=== PATIENT | female | born 1980 | race Caucasian/White ===

== ENCOUNTER 2016-08-04 15:16 | Emergency (ER) | payer SELFPAY ==
[~2016-08-04 15:16] MED LIST: ALBUTEROL SULF8.5 G2 IH; ALPRAZOLAM2 M2 PO; ALPRAZOLAM2 M3 PO; AMOXICILLIN500 M2 PO; AMOXICILLIN500 MG PO; AMOXIL500 MG PO; ATIVAN0.5 MG PO; ATIVAN1 M1 PO; AUGMENTIN 875-1 EAC2 PO; BACTRIM DS TABL1 TAB PO; BENADRYL25 MG PO; CATAPRES0.1 MG PO; CLONAZEPAM0.25 MG PO; CLONAZEPAM0.5 M2 PO; CLONAZEPAM1 M2 PO; COUMADIN; DARVOCET-N 1001 TAB PO; DEPAKOTE; DEPRESSION MED; DICLOFENAC POTA50 M1 PO; DIFLUCAN150 MG PO; EXCEDRIN MIGRAI1 TAB PO; FIORICET TABLET1 TAB PO; FLOXIN10 ML OT; HYDROCODONE; HYDROXYZINE HCL50 M1 PO; IBUPROFEN200 M2 PO; KLONOPIN0.5 M1 PO; LATUDA120 M1 PO; LORAZEPAM1 MG PO; MOTRIN600 MG; MOTRIN800 MG; NALTREXONE HYDR50 MG PO; NO HOME MEDS; NORCO 5-325 TA1 EACH PO; NORCO 5/325 TAB1 TAB PO; OMEPRAZOLE20 M4 PO; ONCE DAILY1 TAB PO; OXYCODONE; PEN-VEE K500 MG PO; PHENERGAN W/CO120 M1 PO; PHENERGAN W/CO120 ML PO; PREDNISONE10 MG PO; PREDNISONE20 M1 PO; PROAIR HFA8.5 GM IH; PROBIOTIC1 EAC4 PO; PROMETH-CODEIN 65 ML PO; PROMETHAZINE-C120 ML PO; RANITIDINE HCL75 M1 PO; REXULTI2 MG PO; ROBITUSSIN15 MG/5 ML; SEROQUEL300 M1 PO; SEROQUEL50 M1 PO; TORADOL10 MG PO; TRAMADOL; TRAMADOL HCL50 MG PO; TRAZODONE100 MG PO; TRIAMCINOLONE A80 GM TP; TYLENOL EXTRA500 M1 PO; ULTRAM50 M1 PO; VALTREX1000 MG PO; VISTARIL25 M1 PO; ZITHROMAX250 M1 PO; ZOFRAN ODT4 MG/UDTAB PO; ZOFRAN4 M1 PO; [UNRECOGNIZED DRUG - OTHER]; [UNRECOGNIZED DRUG - OTHER]
[2016-08-04] MEDS ORDERED: ADVIL200 M2 PO (15:20)
[2016-08-04] MEDS ORDERED: NORCO 5-325 TA1 EACH PO (15:47)
[2016-08-04] MEDS ORDERED: PENICILLIN V P500 M1 PO (15:47)
[2016-12-04] MEDS ORDERED: SEROQUEL100 M2 PO (11:31)
[2016-12-04] MEDS ORDERED: NORCO 5-325 TA1 EACH PO (14:14)
[2016-12-04] MEDS ORDERED: AMOXICILLIN500 M2 PO (14:14)
[2016-12-13] MEDS ORDERED: XANAX2 M1 PO (18:39)
[2016-12-13] MEDS ORDERED: TYLENOL EXTRA500 M1 PO (18:40)
[2016-12-13] MEDS ORDERED: TRAMADOL HCL50 M2 PO (20:43)
[2016-12-13] MEDS ORDERED: NORCO 5-325 TA1 EACH PO (20:52)
== END 2016-08-04 16:03 ==
LOC: EDMED 15:16
DX: K08.89 Other specified disorders of teeth and supporting structures (principal); F31.9 Bipolar disorder, unspecified; F17.210 Nicotine dependence, cigarettes, uncomplicated